=== PATIENT | female | born 1980 | race Caucasian/White ===

== ENCOUNTER → 2017-08-25 10:24 | Outpatient (CLI) | payer OTHER, SELFPAY ==
[2017-08-25 11:00] LABS: Absolute Lymphocyte Count 2.08 X10^3/ul (0.83-4.51); Basophil# 0.02 X10^3/uL; Basophil% 0.3 % (0-1); Eosinophil# 0.07 X10^3/uL; Eosinophils% 0.9 % (0-5); Hematocrit 41.8 % (37-47); Hemoglobin 14.1 g/dl (12.0-15.0); Lymphocyte # 2.08 X10^3/ul (4.0); Lymphocyte % 27.7 % (19-41); Mean Corp Hgb Conc 33.7 g/gl (32-36); Mean Corpuscular Hgb 30.9 pg (27.0-32.0); Mean Corpuscular Volume 91.7 fL (81-99); Mean Platelet Vol. 9.2 fl (6.2-12.0); Monocyte# 0.38 X10^3/uL; Monocyte% 5.1 % (0-10); Neutrophil # 4.96 X10^3/uL (2.7-7.7); Neutrophil % 65.9 % (47-70); Platelet Count 289 K/mm3 (150-450); RBC Distribution Width CV 13.4 % (11.6-14.6); RBC Distribution Width SD 44.4 fl (35.1-43.9); Red Blood Count 4.56 M/mm3 (4.2-5.4); White Blood Count 7.5 K/mm3 (4.4-11.0)
[2017-08-25 11:01] LABS: POSITIVE COUNT NO; POSITIVE DIFFERENTIAL NO; POSITIVE MORPHOLOGY NO
[2017-08-25 11:09] LABS: Erythrocyte Sedimentation Rate 6 mm/hr (0-20)
[2017-08-27 08:35] LABS: EBV Acute VCA IgM < 36.0 U/mL (0.0-35.9); EBV Early Antigen IgG 33.5 U/mL (0.0-8.9); EBV Nuclear Antigen IgG < 18.0 U/mL (0.0-17.9)
== END ==
PROVIDERS: Visit Provider Otolaryngology
DX: I88.9 Nonspecific lymphadenitis, unspecified (principal)
CPT/HCPCS: 36415; 85025; 85652; 86663; 86664; 86665

== ENCOUNTER 2017-08-27 04:29 | Emergency (ER) | payer OTHER, SELFPAY ==
[2017-08-27 04:30] VITALS: BP 125/86; PULSE 95; RESP 20; TEMP 36.9; O2SAT 99; BMI 30.1
--- NOTE | 2017-08-27 04:42 | CT_ITS ---
STUDY: CT FACIAL BONES WITH CONTRAST REASON FOR EXAM: Female, 36 years old. Right-sided facial pain with swelling at the angle the mandible. RADIATION DOSAGE (If Supplied By Facility): CTDIvol = ( 29.38 ) mGy, DLP = ( 584.19 ) mGycm TECHNIQUE: The patient was scanned in a multi detector CT scanner. Transaxial imaging was performed following the intravenous administration of 75 ml of Isovue 300 contrast material. Sagittal and coronal images were reconstructed. Individualized dose optimization techniques were used for this CT. COMPARISON: None. FINDINGS: Normal soft tissue structures. Normal orbital raymundo and orbital contents. Normal nasal bones and anterior nasal spine. The raymundo of the frontal sinuses, raymundo of the maxillary sinuses, zygomatic arches, pterygoid plates, and mandible have a normal appearance. There is no demonstrated fracture. Normal visualized paranasal sinuses. CT/Sinus/Facial Bone WITH Contras IMPRESSION: 1. No CT evidence for fracture. 2. There is no obvious soft tissue abnormality of the region of the right mandible. Electronically Signed: Taylor Carpenter MD at 6:26 EDT , Service support ,
--- NOTE | 2017-08-27 05:09 | ED.RN ---
PT DECLINED PAIN MEDICATION AT THIS TIME
[2017-08-27 05:18] LABS: BUN 16 mg/dL (7-18); Creatinine, Serum 0.84 mg/dL (0.55-1.02); Glucose 97 mg/dL (74-106)
[2017-08-27 05:19] LABS: Anion Gap 6 (5-15); Calcium,Total 8.5 mg/dL (8.5-10.1); Chloride 106 mmol/L (98-107); EST Glomerular Filtration Rate 80 mL/min (>60); Est Glom Filt Rate - Afr Amer 97 mL/min (>60); Potassium 3.6 mmol/L (3.5-5.1); Sodium Level 140 mmol/L (136-145)
--- NOTE | 2017-08-27 05:23 | ED.DCSUM_ITS ---
- ER Visit Summary Date of Service: 08/27/17 Chief Complaint: Facial pain History of Present Illness: The patient is a 36 F with a 2 week history of right facial pain. Patient states [facility] and [facility] diagnosed with a sinus infection. She completed a 10 day course of Augmentin. Patient states her symptoms did not improve and she was seen by ENT on the . Labs were sent for mono. She presents the emergency room early this morning complaining of pain on the right side of her face. She describes altered taste on the right side of her mouth and decreased saliva production. She has not noted any masses, and states that she feels like she has an indentation in the side of her mouth. Physical Examination: Vital signs are unremarkable. Patient sitting upright in bed no acute distress. Head neck examination was no facial edema or erythema. TMs are clear bilaterally. Intraoral examination does reveal moist mucous membranes. I do not palpate any masses in the buccal mucosa. She does have bilateral cervical lymphadenopathy. Heart is regular rate and rhythm. On lung sounds are clear. Abdomen soft nontender. Test Results: BMP was obtained to ensure normal renal function. CT scan of the facial bones with IV contrast reveals no evidence of fracture. There is no soft tissue abnormality in the region of the right mandible. Emergency Department Course and Treatment: CBC and sed rate from the were reviewed and are normal. EBV titers are all still pending. [place] was initially ordered but the patient declined this stating it is made to her stomach upset in the past. She will be given Naprosyn. Symptoms sound consistent with a blocked salivary gland in that she has a bad taste on one side of her mouth and decreased saliva production. She however does not have facial swelling. I did encourage her to try sour candies to see if this helps her symptoms over the next couple days. She be given a prescription for Naprosyn. She is to follow-up with Dr. Machuca. Treatment Plan: [] Disposition: Discharge Impression: Right facial pain This note was generated with [employer] dictation software. It may contain incorrect words, spelling, and punctuation that were not noted in review of the chart prior to signing ED Disposition - Plan for ED Patient: Chief Complaint: Other, Pain/Inj Referrals: Donny Souza [Primary Care Provider] -
[2017-08-27 06:27] VITALS: BP 132/74; PULSE 81; RESP 18; O2SAT 97
--- NOTE | 2017-08-27 06:34 | ED.DEP ---
ED Disposition - Plan for ED Patient: Disposition: Home or Assisted Living Chief Complaint: Other, Pain/Inj Prescriptions: Naproxen [Naprosyn] 500 mg PO BID PRN #20 tablet Referrals: Donny Souza [Primary Care Provider] - Marquis Machuca MD [STAFF PHYSICIAN] - 1 Week Additional Instructions: Your CT scan did not reveal an immediate cause of your current symptoms. Follow-up with Dr Machuca as planned. Return for worsening symptoms or concerns.
--- NOTE | 2017-08-27 06:37 | DCINST.ED_ITS ---
ED Disposition - Plan for ED Patient: Disposition: Home or Assisted Living Chief Complaint: Other, Pain/Inj Prescriptions: Naproxen [Naprosyn] 500 mg PO BID PRN #20 tablet Referrals: Donny Souza [Primary Care Provider] - Marquis Machuca MD [STAFF PHYSICIAN] - 1 Week Additional Instructions: Your CT scan did not reveal an immediate cause of your current symptoms. Follow -up with Dr Machuca as planned. Return for worsening symptoms or concerns.
[2017-08-27 06:42] VITALS: BP 126/74; PULSE 81; RESP 18; O2SAT 100
--- NOTE | 2017-08-27 06:42 | ED.RN ---
THIS NURSE REVIEWED D/C INSTRUCTIONS WITH PT. PT VERBALIZED UNDERSTANDING OF INSTRUCTIONS. IV D/C. IV CATHETER INTACT. PT TOLERATED WELL. PT DENIES FURTHER NEEDS OR QUESTIONS AT THIS TIME. PT AMBULATES FROM ROOM ON OWN WITHOUT ASSISTANCE FROM STAFF
[2017-08-27] MEDS: Naproxen 500 MG Tablet PO (06:46)
== END 2017-08-27 06:48 | disposition home or self-care (01) ==
PROVIDERS: Emergency Provider Emergency Medicine
DX: R51 Headache (principal); R43.9 Unspecified disturbances of smell and taste; K11.7 Disturbances of salivary secretion; R59.0 Localized enlarged lymph nodes; Z90.49 Acquired absence of other specified parts of digestive tract; Z87.891 Personal history of nicotine dependence
CPT/HCPCS: 70487; 80048; 99284; Q9967; A4216

== ENCOUNTER 2017-09-05 08:48 | Emergency (ER) | payer OTHER, SELFPAY ==
[2017-09-05 08:49] VITALS: BP 128/74; PULSE 95; RESP 16; TEMP 36.6; O2SAT 100; BMI 29.7
--- NOTE | 2017-09-05 09:07 | ED.VISSUMM ---
- ER Visit Summary Date of Service: 09/05/17 Chief Complaint: Dehydration and diarrhea History of Present Illness: The patient is a 36 F who presents because she is concerned she is dehydrated. She had 20 loose stools on Tuesday. She had one loose stool yesterday and 2 today. Denied blood or mucus. Son was ill prior with similar symptoms. His illness only lasted 2 days. She does complain of vague diffuse abdominal pain. There is nausea without vomiting. She did report fever of 101.0?F on Tuesday. She does complain of generalized weakness. She does report thirst and decreased urine output. She has had minimal intake today. She denies any fever or chills since Tuesday. She denies ocular, visual auditory symptoms. She denies cardiac or respiratory symptoms. She denies any urologic symptoms. She is status post cholecystectomy. She denies rash, myalgias or arthralgias. Please read written note for complete detail. Physical Examination: Vital signs are unremarkable. Head is atraumatic normocephalic. Pupils are equal round reactive. Extraocular muscles are intact. TMs are pearly white with landmarks noted. Nares patent with no drainage. Posterior pharynx without erythema or exudate. Uvula is midline. Tongue and mucosa are dry there is no dysphonia or dysphasia. Trachea is midline. There is no stridor with auscultation of the neck. Heart is regular without murmur, gallop or rub. S1 and S2 are normal. Lungs are clear to auscultation with good movement of air bilaterally. Abdomen is soft and nontender. There is no guarding or peritoneal findings. There is no palpable pulsatile mass. There is no abdominal bruit. Flowers sign is negative. Negative Rovsing sign. There is no evidence of inguinal or umbilical hernia. Test Results: None were obtained, nor were any indicated. Emergency Department Course and Treatment: Patient will receive 1 L of normal saline. She declined antiemetic. She also declined pain medicine. Patient was reassessed after first liter infused. She had no urge to urinate. Second liter was ordered at 10: 05. Patient was reassessed at 1130. She has the urge to urinate. She does feel better. Treatment Plan: Appropriate home-going instructions Disposition: Discharged to home Impression: 1. Abdominal pain secondary to enteritis 2. Mild to moderate dehydration This note was generated with [employer] dictation software. It may contain incorrect words, spelling, and punctuation that were not noted in review of the chart prior to signing ED Disposition - Plan for ED Patient: Disposition: Home or Assisted Living Chief Complaint: Diarrhea Instructions: ED Vomiting Diarrhea Nonspecific Ad Referrals: Donny Souza [Primary Care Provider] - As Needed
[2017-09-05] MEDS: 0.9% Normal Saline 1,000 ML 1000 ML IV ×2 (09:10→10:00)
[2017-09-05 11:49] VITALS: BP 121/69; PULSE 72; RESP 15; O2SAT 98
== END 2017-09-05 11:50 | disposition home or self-care (01) ==
PROVIDERS: Emergency Provider Emergency Medicine
DX: K52.9 Noninfective gastroenteritis and colitis, unspecified (principal); R10.9 Unspecified abdominal pain; E86.0 Dehydration; Z90.49 Acquired absence of other specified parts of digestive tract
CPT/HCPCS: 96360; 96361; 96365; 96366; 99283; J7030

== ENCOUNTER → 2018-09-05 | Outpatient (CLI) | payer OTHER, SELFPAY ==
[2018-09-05 10:09] VITALS: BMI 30.8
[2018-09-05 12:36] LABS: Hematocrit 43.3 % (37-47); Hemoglobin 14.2 g/dl (12.0-15.0); Mean Corp Hgb Conc 32.8 g/gl (32-36); Mean Corpuscular Hgb 29.9 pg (27.0-32.0); Mean Corpuscular Volume 91.2 fL (81-99); Mean Platelet Vol. 9.8 fl (6.2-12.0); Platelet Count 285 K/mm3 (150-450); RBC Distribution Width CV 13.7 % (11.6-14.6); RBC Distribution Width SD 45.6 fl (35.1-43.9); Red Blood Count 4.75 M/mm3 (4.2-5.4)
[2018-09-05 12:46] LABS: Scan Indicated on CBC? Y/N NO
[2018-09-05 12:50] LABS: Vitamin D,25 Hydroxy 12.6 ng/mL (29.95-100.01)
[2018-09-05 12:54] LABS: AST(SGOT) 19 U/L (15-37); Alanine Aminotransfer ALT/SGPT 26 U/L (13-56); Albumin, Serum 3.8 g/dL (3.2-5.0); Alkaline Phosphatase 65 U/L (45-117); Anion Gap 7 (5-15); BUN 11 mg/dL (7-18); BUN/Creat Ratio 12.2 RATIO (10-20); Calcium,Total 8.8 mg/dL (8.5-10.1); Chloride 104 mmol/L (98-107); EST Glomerular Filtration Rate 74 mL/min (>60); Est Glom Filt Rate - Afr Amer 90 mL/min (>60); Globulin 3.7 g/dL (2.2-4.2); Glucose 81 mg/dL (74-106); Magnesium 2.2 mg/dL (1.6-2.6); Potassium 4.3 mmol/L (3.5-5.1); Protein, Total 7.5 g/dL (6.4-8.2); Sodium Level 139 mmol/L (136-145); Thyroid Stim Hormone (TSH) 0.84 uIU/mL (0.358-3.74)
== END | disposition home or self-care (01) ==
LOC: BIMLAB 10:32
PROVIDERS: PCP Internal Medicine; Visit Provider Nurse Practitioner Family
DX: M62.838 Other muscle spasm (principal); E56.9 Vitamin deficiency, unspecified; R00.2 Palpitations
CPT/HCPCS: 36415; 80053; 82306; 83735; 84443; 85027

== ENCOUNTER 2018-09-19 03:44 | Emergency (ER) | payer OTHER, SELFPAY ==
[2018-09-05 10:09] VITALS: BMI 30.8
[2018-09-19 03:46] VITALS: BP 121/72; PULSE 88; RESP 18; TEMP 36.6; O2SAT 99; BMI 30.6
--- NOTE | 2018-09-19 04:06 | ED.VISSUMM ---
- ER Visit Summary Date of Service: 09/19/18 Chief Complaint: Muscle twitching History of Present Illness: The patient is a 37 F who presents with muscle twitching. This is been going on for at least 2 to 3 weeks. She has seen her primary care physician and had blood work. She was recently started on vitamin D. She feels like it is getting worse. She has otherwise is well without complaint. No fevers chest pain shortness of breath vomiting. Physical Examination: Afebrile vitals normal Moist mucous membranes Heart regular rate and rhythm Lungs clear Alert oriented no focal or lateralizing neurological deficits normal muscle tone Test Results: Not indicated Emergency Department Course and Treatment: Patient has already seen her primary care physician in regards to her presenting symptoms. She has had blood work including checking her electrolytes TSH and vitamin D. I explained that I have little else I can offer her here in the emergency department either diagnostically or for treatment and that she should follow-up with her primary care physician. I do not believe her symptoms are related to serious acute limb or life-threatening pathology. She was advised that if symptoms continue she could potentially benefit from neurology consultation. Patient discharged. Treatment Plan: [] Disposition: Discharge Impression: Muscle twitching This note was generated with [employer] dictation software. It may contain incorrect words, spelling, and punctuation that were not noted in review of the chart prior to signing ED Disposition - Plan for ED Patient: Referrals: Ernestina Chong MD [Primary Care Provider] -
--- NOTE | 2018-09-19 04:09 | ED.DEP ---
ED Disposition - Plan for ED Patient: Instructions: ED Spasm Muscle Referrals: Ernestina Chong MD [Primary Care Provider] -
== END 2018-09-19 04:17 | disposition home or self-care (01) ==
LOC: ED 04:09
PROVIDERS: Emergency Provider Emergency Medicine; Family Provider Internal Medicine; PCP Internal Medicine
DX: R25.3 Fasciculation (principal); Z72.0 Tobacco use
CPT/HCPCS: 99282